=== PATIENT | male | born 1975 | race Caucasian/White ===

== ENCOUNTER 2023-06-26 14:34 | Emergency (ER) | payer OTHER ==
[~2023-06-26] VITALS: Ht 175.3 cm; Wt 93.0 kg
[2023-06-26 14:44] VITALS: BP 135/88; TEMP 98
[2023-06-26] MEDS ORDERED: IBUP-1953 PO (15:09)
[2023-06-26] MEDS ORDERED: TYL2T PO (15:09)
[2023-06-26] MEDS ORDERED: DEXT15DR6 EACHEYE (15:09)
[2023-06-26 15:14] VITALS: O2SAT 97
== END 2023-06-26 15:15 | disposition home or self-care (01) ==
LOC: ER 14:58
DX: S00.83XA Contusion of other part of head, initial encounter (principal); H20.9 Unspecified iridocyclitis; I10 Essential (primary) hypertension; Z88.0 Allergy status to penicillin; Y04.8XXA Assault by other bodily force, initial encounter; Y93.89 Activity, other specified; Y92.89 Other specified places as the place of occurrence of the external cause; Y99.8 Other external cause status